=== PATIENT | male | born 1955 | race Caucasian/White ===

== ENCOUNTER 2019-10-18 09:51 | Outpatient (CLI) | payer MEDICARE, SELFPAY ==
--- NOTE | ~2019-10-18 | XR_ITS ---
EXAMINATION: XR thoracic spine 3V DATE: 10/18/2019 10:29 INDICATION: Back pain TECHNIQUE: AP, lateral and lateral swimmer's views of the thoracic spine were obtained. COMPARISON: None. FINDINGS: There is no fracture, dislocation, or subluxation. The vertebral body heights and alignment are normal. There is mild loss of intervertebral disc space height at multiple levels of the thoraci c spine. There are changes of anterior fusion procedure in the lower cervical spine. Small degenerati ve osteophytes project from the anterior endplates of multiple vertebral bodies. IMPRESSION: 1. Mild thoracic spondylosis without acute findings. Reviewed, dictated and finalized at location A.
--- NOTE | ~2019-10-18 | XR_ITS ---
EXAMINATION: XR lumbar spine 2-3V DATE: 10/18/2019 10:29 INDICATION: Right-sided sciatica TECHNIQUE: Anteroposterior and lateral views of the lumbar spine, and cone-down lateral view of the l umbosacral junction were obtained. COMPARISON: None. FINDINGS: There are 5 mm of anterolisthesis of L5 on S1. The vertebral body heights are normal. There is no fracture. There is mild loss of intervertebral disc space height at L3-4. Small degenerative o steophytes project from the anterior endplates of multiple vertebral bodies. Moderate facet osteoarth ritis is noted at L5-S1. There is moderate right and mild left hip osteoarthritis. Phleboliths are no jami in the pelvis. Metallic densities in the deep pelvis may reflect surgical clips. IMPRESSION: 1. Mild to moderate lumbar spondylosis without acute findings. Reviewed, dictated and finalized at location A.
--- NOTE | ~2019-10-18 | XR_ITS ---
XR hip RT min 2V 10/18/2019 10:29 Indication: Right hip pain Procedure: 2 views right hip Comparison: No prior studies for comparison. Findings: There is severe osteoarthritis of the right hip. No fracture, subluxation or dislocation. N o focal soft tissue abnormality. No radiopaque foreign bodies. Impression: 1: Severe osteoarthritis of the right hip. Reviewed, dictated and finalized at location A. Impression: 1: Severe osteoarthritis of the right hip.
== END 2019-10-18 09:52 | disposition home or self-care (01) ==
LOC: ANHIMG 10:06
PROVIDERS: PCP Physician Assistant; Visit Provider Physician Assistant
DX: M25.551 Pain in right hip (principal); M54.31 Sciatica, right side; M47.816 Spondylosis without myelopathy or radiculopathy, lumbar region; M47.814 Spondylosis without myelopathy or radiculopathy, thoracic region; M16.11 Unilateral primary osteoarthritis, right hip
CPT/HCPCS: 72072; 72100; 73502

== ENCOUNTER 2020-02-22 09:22 | Outpatient (CLI) | payer MEDICARE, SELFPAY ==
[2020-02-22 09:54] LABS: Basophils Percent Auto 0.5 % (0.2-1.2); Eosinophils Absolute Auto 0.2 K/mm3 (0-0.3); Eosinophils Percent Auto 3.5 % (0-4.4); Hematocrit 40.4 % (42.0-52.0); Hemoglobin 13.6 g/dL (14.0-18.0); Immature Granulocyte Absolute 0.04 K/mm3 (0.00-0.031); Immature Granulocyte Percent A 0.7 % (0-0.5); Lymphocytes Absolute Auto 2.01 K/mm3 (0.9-3.2); Lymphocytes Percent Auto 35.4 % (18.3-44.2); Mean Corpuscular HGB Conc 33.7 g/dl (32-36); Mean Corpuscular Hemoglobin 30.8 pg (26-34); Mean Corpuscular Volume 91.4 fl (80-100); Monocytes Absolute Auto 0.8 K/mm3 (0.1-0.6); Monocytes Percent Auto 14.6 % (2.6-8.5); Neutrophils Absolute Auto 2.6 K/mm3 (1.3-6.7); Neutrophils Percent Auto 45.3 % (45.5-73.1); Platelet Count Result 241 k/mm3 (150-375); Red Blood Count 4.42 M/mm3 (4.6-6.20); Red Cell Distribution Width 13.2 % (11.5-14.5); White Blood Count 5.7 K/mm3 (4.5-10.0)
[2020-02-22 10:03] LABS: Anion Gap 5 mmol/L (8-16); Aspartate Amino Transferase 28 U/L (17-59); Blood Urea Nitrogen 29 mg/dL (9-20); Calcium 9.4 mg/dL (8.4-10.2); Carbon Dioxide 29 mmol/L (22-30); Chloride 100 mmol/L (98-107); Estimated Glomerular Filt Rate > 60; Glucose 88 mg/dL (75-110); Potassium 4.8 mmol/L (3.4-5.0); Sodium 134 mmol/L (137-145)
== END 2020-02-22 09:23 | disposition home or self-care (01) ==
LOC: ANHLAB 09:26
PROVIDERS: PCP Physician Assistant; Visit Provider Orthopaedic Surgery
DX: Z51.81 Encounter for therapeutic drug level monitoring (principal); Z79.1 Long term (current) use of non-steroidal anti-inflammatories (NSAID)
CPT/HCPCS: 36415; 80048; 84450; 85025

== ENCOUNTER 2020-10-18 10:47 | Emergency (ER) | payer MEDICARE, SELFPAY ==
[2020-10-18] VITALS (23 sets, daily range): BP systolic 76–115; BP diastolic 37–79; PULSE 76–102; RESP 9–20; TEMP 37.7; O2SAT 88–98
--- NOTE | ~2020-10-18 | XR_ITS ---
EXAMINATION: XR chest 2V DATE: 10/18/2020 11:31 INDICATION: Fever TECHNIQUE: PA and lateral views of the chest are obtained. COMPARISON: 01/25/2019 FINDINGS: The lungs are free of acute opacities. There is no pleural effusion or pneumothorax. The ca rdiomediastinal silhouette is normal. There is mild thoracic spondylosis. There are partially imaged changes of anterior fusion in the lower cervical spine. IMPRESSION: 1. No acute cardiopulmonary abnormality. Reviewed, dictated and finalized at location B.
[2020-10-18 11:36] LABS: Basophils Percent Auto 0.2 % (0.2-1.2); Eosinophils Percent Auto 0.2 % (0-4.4); Hematocrit 41.4 % (42.0-52.0); Hemoglobin 13.7 g/dL (14.0-18.0); Immature Granulocyte Absolute 0.01 K/mm3 (0.00-0.031); Immature Granulocyte Percent A 0.2 % (0-0.5); Lymphocytes Absolute Auto 0.99 K/mm3 (0.9-3.2); Lymphocytes Percent Auto 21.9 % (18.3-44.2); Mean Corpuscular HGB Conc 33.1 g/dl (32-36); Mean Corpuscular Hemoglobin 30.2 pg (26-34); Mean Corpuscular Volume 91.4 fl (80-100); Mean Platelet Volume 8.8 fl (7.4-10.4); Monocytes Absolute Auto 0.5 K/mm3 (0.1-0.6); Monocytes Percent Auto 10.8 % (2.6-8.5); Neutrophils Percent Auto 66.7 % (45.5-73.1); Platelet Count Result 198 k/mm3 (150-375); Red Blood Count 4.53 M/mm3 (4.6-6.20); Red Cell Distribution Width 13.2 % (11.5-14.5); White Blood Count 4.5 K/mm3 (4.5-10.0)
[2020-10-18 11:39] LABS: Add Urine Microscopic? YES; Appearance Urine Clear (Clear); Bilirubin Urine Negative (Negative); Blood Urine 2+ (Negative); Color Urine Yellow (Yellow); Glucose Urine UA Negative (Negative); Ketones Urine Negative (Negative); Leukocyte Esterase Ur Negative LEU/UL (Negative); Mucus Urine Rare /lpf; Nitrate Urine Negative (Negative); Protein Urine 1+ mg/dL (Negative); RBC Urine 0-2 /hpf (0-2); Specific Grav Ur 1.019 (1.001-1.035); Squamous Epithelial Cell Urine Rare /hpf (Few); Urobilinogen Urine Negative mg/dL (<2.0); WBC Urine 0-3 /hpf
[2020-10-18 11:46] LABS: Lactic Acid Reflex 1.1 mmol/L (0.7-2.1)
[2020-10-18 11:50] LABS: Alanine Aminotransferase 26 U/L (4-50); Albumin Level 4.3 g/dL (3.5-5.1); Alkaline Phosphatase 68 U/L (38-126); Anion Gap 10 mmol/L (8-16); Aspartate Amino Transferase 34 U/L (17-59); Bilirubin,Total 0.5 mg/dL (0.2-1.3); Blood Urea Nitrogen 18 mg/dL (9-20); CRP 1.5 mg/dL (<1.0); Calcium 8.9 mg/dL (8.4-10.2); Carbon Dioxide 19 mmol/L (22-30); Chloride 99 mmol/L (98-107); Estimated CRCL calculation 54 ml/min; Estimated Glomerular Filt Rate 47; Glucose 97 mg/dL (75-110); Potassium 4.8 mmol/L (3.4-5.0); Prothrombin Time 12.7 Seconds (11.1-14.7); Sodium 128 mmol/L (137-145)
[2020-10-18 11:51] LABS: Partial Thromboplastin Time 25.8 SECONDS (22.3-36.8)
--- NOTE | 2020-10-18 12:47 | ED.FEVER ---
HPI - Fever General Chief Complaint: Fever Stated Complaint: R LEG WOUND Time Seen by Provider: 10/18/20 12:15 Source: patient Mode of arrival: ambulatory Limitations: no limitations History of Present Illness HPI Narrative: Patient is a 65-year-old male complaining of fever x1 day at home. Patient states that he was recently treated with antibiotics last week from a boil on his right thigh, now healed, was rechecked by his primary care physician and was told that the boil has resolved. Last night patient developed fever. Patient denies any headache, chest pain, shortness of breath, cough, nasal or chest congestion, abdominal pain, nausea, vomiting, diarrhea or urinary symptoms. Related Data Home Medications Medication Instructions Recorded Confirmed cyanocobalamin (vitamin B-12) 1,000 mcg PO DAILY 03/08/19 10/16/20 1,000 mcg tablet finasteride 5 mg tablet 5 mg PO DAILY 03/08/19 10/16/20 tadalafil 5 mg tablet 5 mg PO DAILY 03/08/19 10/16/20 cholecalciferol (vitamin D3) 25 25 mcg PO DAILY 04/30/20 10/16/20 mcg (1,000 unit) capsule Allergies Allergy/AdvReac Type Severity Reaction Status Date / Time No Known Allergies Allergy Unknown Verified 10/18/20 12:22 Review of Systems Review of Systems: All systems reviewed & are unremarkable except as noted in HPI and below Constitutional: Constitutional: Denies body ache(s), Denies excessive sweating, Denies fatigue, Denies headache(s), Denies lethargy, Denies malaise, Denies weakness and Denies weight loss Eyes: Eyes: Denies blurry vision, Denies change in vision and Denies loss of vision ENT: Denies dizziness, Denies ear discharge, Denies headache(s), Denies lip swelling, Denies epistaxis, Denies nasal congestion, Denies neck pain, Denies throat swelling and Denies tongue swelling Cardiovascular: Cardiovascular: Denies chest pain, Denies chest pain at rest, Denies chest pain with activity, Denies diaphoresis, Denies rapid heart rate, Denies edema, Denies irregular heart rhythm, Denies lightheadedness, Denies palpitations, Denies dyspnea and Denies dyspnea on exertion Respiratory: Respiratory: Denies chest congestion, Denies cough, Denies hemoptysis, Denies dyspnea and Denies dyspnea on exertion Gastrointestinal: Gastrointestinal: Denies abdominal pain, Denies melena, Denies hematochezia, Denies diarrhea, Denies nausea, Denies vomiting and Denies hematemesis Musculoskeletal: Musculoskeletal: Denies abnormal gait, Denies deformity, Denies joint swelling, Denies limited range of motion, Denies neck pain and Denies numbness Neurologic: Denies Abnormal speech present, Denies abnormal gait, Denies confusion, Denies dizziness, Denies headache(s), Denies focal weakness, Denies loss of vision, Denies numbness, Denies Other visual disturbances, Denies Sensory deficit (Neuro) and Denies weakness Psychiatric: Psychiatric: Denies confusion, Denies depression, Denies auditory hallucinations, Denies homicidal ideation and Denies suicidal ideation Endocrine: Endocrine: Denies cold intolerance, Denies excessive sweating, Denies fatigue, Denies heat intolerance and Denies palpitations Hematologic/Lymphatic: Hematologic/Lymphatic: Denies easy bleeding and Denies easy bruising Allergic/Immunologic: Allergic/Immunologic: Denies lip swelling, Denies throat swelling and Denies tongue swelling PMFSH Past Medical History Medical History Acute bronchitis, viral Arthritis Back pain with right-sided sciatica BMI 30.0-30.9,adult BPH associated with nocturia Erectile dysfunction Hypertension Right hip pain Vitamin B12 deficiency anemia Surgical History Surgical History H/O prostate biopsy 2016 History of hernia surgery 1999,2015 History of neck surgery Disk surgery 1989 Urolith 2016 Family History Family History Mother P
[2020-10-18] MEDS: ACETAMINOPHEN 325 MG TABLET 650 MG PO (13:55)
[2020-10-18] MEDS: LACTATED RINGERS 1,000 ML 999 ML IV CONT (14:39)
--- NOTE | 2020-10-18 15:39 | PCCCNOTE ---
Care Coordination was asked to talk to patient about Observation care. Discussed the difference of observation and Inpatient admission. Pt concerned that [facility] will not pay much and he does not want to be stuck with big bill. Pt states he has not yet met his yearly deductible, informed him that he would be responsible for that amount and then the percentage he normally pays for outpatient tests. Informed him that if his bill was more that he could afford that he can contact the business office and work a payment plan or apply for financial assistance. present during this conversation. Encouraged pt to follow Physician recommendations.
== END 2020-10-18 15:45 | disposition left against medical advice (07) ==
PROVIDERS: Emergency Medicine; Emergency Provider Emergency Medicine; PCP Family Medicine
DX: R50.9 Fever, unspecified (principal); N17.9 Acute kidney failure, unspecified; M19.90 Unspecified osteoarthritis, unspecified site; N40.1 Benign prostatic hyperplasia with lower urinary tract symptoms; R35.1 Nocturia; I10 Essential (primary) hypertension; D51.9 Vitamin B12 deficiency anemia, unspecified; Z87.891 Personal history of nicotine dependence
CPT/HCPCS: 36415; 71046; 80053; 81001; 83605; 85025; 85610; 85730; 86140; 87040; 96361; 96365; 99284; A9270; J0696; J7120

== ENCOUNTER 2020-10-19 13:53 | Inpatient (IN) | payer MEDICARE, SELFPAY ==
[2020-10-19] VITALS (22 sets, daily range): BP systolic 94–124; BP diastolic 46–76; PULSE 80–112; RESP 18–20; TEMP 36.3–39.5; O2SAT 96–100; BMI 31.0
--- NOTE | ~2020-10-19 | XR_ITS ---
EXAMINATION: XR chest 2V EXAM DATE: 10/19/2020 15:32 INDICATION: Cough, fever, chills. TECHNIQUE: Frontal and lateral projections of the chest obtained and reviewed. Comparison is made to prior examination from 02/18/2021. FINDINGS: The lungs are clear. There are no pleural effusions. The cardiomediastinal silhouette is within normal limits. There is no pneumothorax suspected. Cervical fusion hardware. IMPRESSION: No acute cardiopulmonary findings. Reviewed, dictated and finalized at location A.
[2020-10-19 14:22] LABS: Hematocrit 40.2 % (42.0-52.0); Hemoglobin 13.5 g/dL (14.0-18.0); Mean Corpuscular HGB Conc 33.6 g/dl (32-36); Mean Corpuscular Hemoglobin 30.8 pg (26-34); Mean Corpuscular Volume 91.6 fl (80-100); Mean Platelet Volume 8.9 fl (7.4-10.4); Platelet Count Result 168 k/mm3 (150-375); Red Blood Count 4.39 M/mm3 (4.6-6.20); White Blood Count 6.1 K/mm3 (4.5-10.0)
[2020-10-19 14:32] LABS: Alanine Aminotransferase 28 U/L (4-50); Albumin Level 4.2 g/dL (3.5-5.1); Alkaline Phosphatase 67 U/L (38-126); Anion Gap 11 mmol/L (8-16); Aspartate Amino Transferase 41 U/L (17-59); Bilirubin,Total 0.5 mg/dL (0.2-1.3); Blood Urea Nitrogen 20 mg/dL (9-20); Calcium 8.7 mg/dL (8.4-10.2); Carbon Dioxide 20 mmol/L (22-30); Chloride 95 mmol/L (98-107); Estimated CRCL calculation 50 ml/min; Estimated Glomerular Filt Rate 43; Glucose 120 mg/dL (75-110); Lipase 140 U/L (23-300); Potassium 4.8 mmol/L (3.4-5.0); Sodium 126 mmol/L (137-145)
[2020-10-19 14:51] LABS: Band Neutrophils Percent 7 % (0-6); Eosinophils Absolute Manual 0.12 K/mm3 (0.02-0.5); Eosinophils Percent Manual 2 % (0-4); Lymphocytes Absolute Manual 0.61 K/mm3 (1.1-4.5); Monocytes Percent Manual 5 % (3-9); Neutrophils Absolute Manual 5.06 K/mm3 (1.3-6.7); Neutrophils Percent Manual 76 % (46-73); Platelet Estimate Adequate (Adequate); Total Cells Counted 100
--- NOTE | 2020-10-19 15:10 | ED.FEVER ---
HPI - Fever General Chief Complaint: Fever Stated Complaint: nausea.vomiting Time Seen by Provider: 10/19/20 14:54 Source: patient Mode of arrival: ambulatory Limitations: no limitations History of Present Illness HPI Narrative: Patient is a 65-year-old male complaining of fever accompanied by nausea and vomiting at home. Patient was seen here 3 days ago for fever, advised the patient to be admitted but he refused at that time. Patient denies any headache, dizziness, neck pain or stiffness, chest pain, shortness of breath, abdominal pain or urinary symptoms. Related Data Home Medications Medication Instructions Recorded Confirmed finasteride 5 mg tablet 5 mg PO DAILY 03/08/19 10/16/20 tadalafil 5 mg tablet 5 mg PO DAILY 03/08/19 10/16/20 cholecalciferol (vitamin D3) 25 25 mcg PO DAILY 04/30/20 10/16/20 mcg (1,000 unit) capsule Allergies Allergy/AdvReac Type Severity Reaction Status Date / Time No Known Allergies Allergy Unknown Verified 10/18/20 12:22 Review of Systems Review of Systems: All systems reviewed & are unremarkable except as noted in HPI and below Constitutional: Constitutional: Denies body ache(s), Denies excessive sweating, Denies fatigue, Denies headache(s), Denies lethargy, Denies malaise, Denies weakness and Denies weight loss Eyes: Eyes: Denies blurry vision, Denies change in vision and Denies loss of vision ENT: Denies dizziness, Denies ear discharge, Denies headache(s), Denies lip swelling, Denies epistaxis, Denies nasal congestion, Denies neck pain, Denies throat swelling and Denies tongue swelling Cardiovascular: Cardiovascular: Denies chest pain, Denies chest pain at rest, Denies chest pain with activity, Denies diaphoresis, Denies rapid heart rate, Denies edema, Denies irregular heart rhythm, Denies lightheadedness, Denies palpitations, Denies dyspnea and Denies dyspnea on exertion Respiratory: Respiratory: Denies chest congestion, Denies cough, Denies hemoptysis, Denies dyspnea and Denies dyspnea on exertion Gastrointestinal: Gastrointestinal: Denies abdominal pain, Denies melena, Denies hematochezia, Denies diarrhea and Denies hematemesis Musculoskeletal: Musculoskeletal: Denies abnormal gait, Denies deformity, Denies joint swelling, Denies limited range of motion, Denies neck pain and Denies numbness Neurologic: Denies Abnormal speech present, Denies abnormal gait, Denies confusion, Denies dizziness, Denies headache(s), Denies focal weakness, Denies loss of vision, Denies numbness, Denies Other visual disturbances, Denies Sensory deficit (Neuro) and Denies weakness Psychiatric: Psychiatric: Denies confusion, Denies depression, Denies auditory hallucinations, Denies homicidal ideation and Denies suicidal ideation Endocrine: Endocrine: Denies cold intolerance, Denies excessive sweating, Denies fatigue, Denies heat intolerance and Denies palpitations Hematologic/Lymphatic: Hematologic/Lymphatic: Denies easy bleeding and Denies easy bruising Allergic/Immunologic: Allergic/Immunologic: Denies lip swelling, Denies throat swelling and Denies tongue swelling PMFSH Past Medical History Medical History Acute bronchitis, viral Arthritis Back pain with right-sided sciatica BMI 30.0-30.9,adult BPH associated with nocturia Erectile dysfunction Hypertension Right hip pain Vitamin B12 deficiency anemia Surgical History Surgical History H/O prostate biopsy 2016 History of hernia surgery 1999,2015 History of neck surgery Disk surgery 1989 Urolith 2016 Family History Family History Mother Patient's mother is , Onset Age: 84 Family history of malignant neoplasm of urinary bladder Hypertension Father Family history of malignant neoplasm, Onset Age: 74 Leukemia Other Carcinoma of colon Other Family
[2020-10-19 15:34] LABS: Add Urine Microscopic? YES; Appearance Urine Clear (Clear); Bacteria Urine Trace /hpf; Bilirubin Urine Negative (Negative); Blood Urine 2+ (Negative); Color Urine Yellow (Yellow); Glucose Urine UA Negative (Negative); Ketones Urine Trace mg/dL (Negative); Leukocyte Esterase Ur Negative LEU/UL (Negative); Mucus Urine Rare /lpf; Nitrate Urine Negative (Negative); Protein Urine 1+ mg/dL (Negative); RBC Urine 0-2 /hpf (0-2); Specific Grav Ur 1.018 (1.001-1.035); Urobilinogen Urine Negative mg/dL (<2.0); WBC Urine 0-3 /hpf
[2020-10-19] MEDS: LACTATED RINGERS 1,000 ML 999 ML IV CONT (15:35)
[2020-10-19] MEDS: ONDANSETRON INJ 4 MG/2 ML VIAL IV PUSH (15:57)
[2020-10-19] MEDS: SODIUM CHLORIDE 0.9% IV 1,000 ML 999 ML IV CONT (18:21)
--- NOTE | 2020-10-19 18:36 | PC.NURSE ---
Orthostatics done, dizziness with sitting up. IVF initiated and pt prepared for CT via stretcher. Dizziness gone after returning to bed.
--- NOTE | 2020-10-19 19:09 | PC.NURSE ---
Per Marcia no SBAR received, and THOMAS Lowry, not available for phone report. SBAR copy tubed to floor. Report to THOMAS Mello, to continue care.
[2020-10-19] MEDS: SODIUM CHLORIDE 0.9% IV 1,000 ML 125 ML IV CONT (20:49)
--- NOTE | 2020-10-19 21:55 | ADMGEN ---
This patient, Lowell Padron, was admitted to Medical Room 344-01. Patient/family oriented to hospital policies and general routines including ID bracelet, bed and alarms, visiting hours, pain management, procedures, bathroom and other care routines, personal items, smoking policy, room service/diet, and visiting hours. Information on how to activate the Rapid Response Team has been discussed. Patient/Family are encouraged to report perceived risks to care and to ask questions if they do not understand what they are told or what they should do.
--- NOTE | 2020-10-19 22:44 | PM.IMHP ---
H&P: HPI History of Present Illness Date/Time: 10/19/20 22:44Thielzbieta is a 65-year-old male patient who was in the emergency room with a fever yesterday. However the patient did not stay any signed himself out. The patient stated that on the 02 of October he went to [facility] and he noticed a boil on his right inner thigh. The patient stated he was able to get into his doctor on the . He was given Bactrim and took a 10 day dose. The patient stated that the boil on the right inner thigh had gone away and there was no redness or tenderness after that. Patient finished his last pill yesterday. The patient stated that he did not start a fever until after he started the Bactrim. Today the patient developed a red rash in his face got red. He does not have any blisters or any sores in his mouth at this point. However today there is a large area around the right inner thigh that is red now. He stated that He hada T-max fever of 103 over the last couple days. today the patient's face got red had not been out in the sun and he developed a rash and felt that he needed to come back into the emergency room. He does not have an elevated white count. Any typically has high blood pressure but today it was low. He vomited as soon as he got into the emergency room today but he stated he go down a large orange drink right before going to the ER. The patient's sodium is down to 126 and his creatinine is now 1.6. He was started on IV fluids initially he was started on Rocephin. His urine is negative and his chest x-ray offers up no acute cardiopulmonary findings. The patient was started on lactated Ringer's, Rocephin, Tylenol, Zofran and then normal saline. The patient is being admitted to observation status on the date of service of 10/19/2020. Chief Complaint: Fever Review of Systems Review of Systems: All systems reviewed & are unremarkable except as noted in HPI and below Constitutional: Constitutional: Reports as per HPI and Reports no additional constitutional complaints Eyes: Eyes: Reports as per HPI and Reports no additional eye complaints ENT: Reports system reviewed and no additional complaints, except as documented and Reports Normal hearing present Cardiovascular: Cardiovascular: Reports no additional cardiovascular complaints Respiratory: Respiratory: Reports no additional respiratory complaints and Reports no additional respiratory complaints Gastrointestinal: Gastrointestinal: Reports as per HPI and Reports no additional gastrointestinal complaints Musculoskeletal: Musculoskeletal: Reports no additional musculoskeletal complaints Integumentary/Breasts: Skin/Breast: Reports system reviewed and no additional complaints, except as docu and Reports as per HPI Neurologic: Reports system reviewed and no additional complaints, except as documented, Reports as per HPI and Reports Normal hearing present Psychiatric: Psychiatric: Reports no additional psychiatric complaints and Reports as per HPI Endocrine: Endocrine: Reports no additional endocrine complaints Hematologic/Lymphatic: Hematologic/Lymphatic: Reports no additional hematologic/lymphatic complaints Allergic/Immunologic: Allergic/Immunologic: Reports no additional allergic/immunologic complaints [facility] Past Medical History Medical History (Updated 10/19/20 @ 22:48 by Emily Rajput NP) Acute bronchitis, viral Arthritis Back pain with right-sided sciatica BMI 30.0-30.9,adult BPH associated with nocturia Erectile dysfunction Hypertension Right hip pain Vitamin B12 deficiency anemia Surgical History Surgical History H/O prostate biopsy 2016 History of hernia surgery 1999,2015 History of neck surgery Disk surgery 1989 Urolith 2016 Family History Family History Mother Patient's mother is , Onset Age: 84 Family history of malignant neopl
[2020-10-20] VITALS (8 sets, daily range): BP systolic 89–129; BP diastolic 55–67; PULSE 71–84; RESP 18; TEMP 36.9–38.4; O2SAT 96–99
[2020-10-20] MEDS: SODIUM CHLORIDE 0.9% IV 1,000 ML 125 ML IV CONT ×3 (05:00→22:45)
[2020-10-20 05:51] LABS: Basophils Percent Auto 0.3 % (0.2-1.2); Eosinophils Percent Auto 0.3 % (0-4.4); Hematocrit 33.5 % (42.0-52.0); Hemoglobin 11.3 g/dL (14.0-18.0); Immature Granulocyte Absolute 0.02 K/mm3 (0.00-0.031); Immature Granulocyte Percent A 0.5 % (0-0.5); Lymphocytes Absolute Auto 0.75 K/mm3 (0.9-3.2); Lymphocytes Percent Auto 19.5 % (18.3-44.2); Mean Corpuscular HGB Conc 33.7 g/dl (32-36); Mean Corpuscular Hemoglobin 30.9 pg (26-34); Mean Corpuscular Volume 91.5 fl (80-100); Mean Platelet Volume 9.3 fl (7.4-10.4); Monocytes Absolute Auto 0.3 K/mm3 (0.1-0.6); Monocytes Percent Auto 8.6 % (2.6-8.5); Neutrophils Absolute Auto 2.7 K/mm3 (1.3-6.7); Neutrophils Percent Auto 70.8 % (45.5-73.1); Platelet Count Result 134 k/mm3 (150-375); Red Blood Count 3.66 M/mm3 (4.6-6.20); White Blood Count 3.8 K/mm3 (4.5-10.0)
[2020-10-20 06:00] LABS: Lactic Acid Reflex 0.9 mmol/L (0.7-2.1)
[2020-10-20 06:03] LABS: Alanine Aminotransferase 25 U/L (4-50); Albumin Level 3.2 g/dL (3.5-5.1); Alkaline Phosphatase 46 U/L (38-126); Anion Gap 8 mmol/L (8-16); Aspartate Amino Transferase 38 U/L (17-59); Bilirubin,Total 0.3 mg/dL (0.2-1.3); Blood Urea Nitrogen 15 mg/dL (9-20); Carbon Dioxide 21 mmol/L (22-30); Chloride 98 mmol/L (98-107); Estimated CRCL calculation 70 ml/min; Estimated Glomerular Filt Rate 55; Glucose 95 mg/dL (75-110); Magnesium 1.6 mg/dL (1.6-2.3); Potassium 4.2 mmol/L (3.4-5.0); Sodium 127 mmol/L (137-145)
[2020-10-20] MEDS: FINASTERIDE 5 MG TABLET PO (08:45)
[2020-10-20] MEDS: CHOLECALCIFEROL 1,000 UNITS TABLET 1000 UNITS PO (08:45)
[2020-10-20] MEDS: ENOXAPARIN 40 MG/0.4 ML SYRINGE SUB-Q (08:46)
--- NOTE | 2020-10-20 13:44 | PM.IMPN ---
Progress Note: A&P Assessment and Plan (1) Fever: Qualifiers: Fever type: unspecified Qualified Code(s): R50.9 - Fever, unspecified Code(s): R50.9 - Fever, unspecified Status: Acute Assessment and Plan: SUSPECT FEVER MEDICAMENTOSA WILL DISCONTINUE ALL ANTIBIOTICS SUPPORTIVE CARE CONTINUE TO MONITOR the patient was treated for a boil to his right inner thigh and developed a fever after he started on the Bactrim. The patient now has a rash and a red face. Which could be side effects of the Bactrim. The patient does not have any sloughing skin like Otto Riki syndrome. Although this medication can cause Otto Riki syndrome the patient needs to be monitored closely. He was started on IV fluids and given Tylenol and Benadryl his symptoms could be related to the Bactrim. He was started on Rocephin in the emergency room which would work for skin infection. The patient still has a red area to his right inner thigh as per antibiotic protocol I did start him on Ancef. He had blood cultures drawn on the which are still pending. Patient's temperature on 10/18/2020 was 37.7 and on the 3rd was 38? and then went up to 39.5 degree Con the 3rd today it was 37.8 ? C. the patient does not have any leukocytosis. This also could possibly be viral. Urine and chest are negative. (2) Acute kidney injury: Code(s): N17.9 - Acute kidney failure, unspecified Status: Acute Assessment and Plan: Continue with IV fluids for now. Again this could be the side effects of the Bactrim. He threw up only 1 time that was coming into the emergency room. Recheck BMP in the a.m.. (3) Hypertension: Code(s): I10 - Essential (primary) hypertension Status: Chronic Assessment and Plan: Patient's blood pressure is on the soft side at this time. The patient only takes medication for BPH. (4) BPH associated with nocturia: Code(s): N40.1 - Benign prostatic hyperplasia with lower urinary tract symptoms; R35.1 - Nocturia Status: Acute Assessment and Plan: Continue with his home medication for BPH but monitor his blood pressure closely. Subjective Date/time seen: 10/20/20 13:44 I FEEL OKAY Review of Systems Review of Systems: All systems reviewed & are unremarkable except as noted in HPI and below Constitutional: Constitutional: Reports as per HPI and Reports no additional constitutional complaints Eyes: Eyes: Reports as per HPI and Reports no additional eye complaints ENT: Reports system reviewed and no additional complaints, except as documented and Reports Normal hearing present Cardiovascular: Cardiovascular: Reports no additional cardiovascular complaints Respiratory: Respiratory: Reports no additional respiratory complaints and Reports no additional respiratory complaints Gastrointestinal: Gastrointestinal: Reports as per HPI and Reports no additional gastrointestinal complaints Musculoskeletal: Musculoskeletal: Reports no additional musculoskeletal complaints Integumentary/Breasts: Skin/Breast: Reports system reviewed and no additional complaints, except as docu and Reports as per HPI Neurologic: Reports system reviewed and no additional complaints, except as documented, Reports as per HPI and Reports Normal hearing present Psychiatric: Psychiatric: Reports no additional psychiatric complaints and Reports as per HPI Endocrine: Endocrine: Reports no additional endocrine complaints Hematologic/Lymphatic: Hematologic/Lymphatic: Reports no additional hematologic/lymphatic complaints Allergic/Immunologic: Allergic/Immunologic: Reports no additional allergic/immunologic complaints Exam Const: General: cooperative, healthy appearing, comfortable, no acute distress, well developed, alert, awake and Physically active Nutritional Appearance: average body habitus and well nourished Orientation/consciousness: oriented to person, oriented to p
[2020-10-21 05:18] VITALS: BP 104/48; PULSE 72; RESP 17; TEMP 37.1; O2SAT 98
[2020-10-21] MEDS: SODIUM CHLORIDE 0.9% IV 1,000 ML 125 ML IV CONT (06:52)
[2020-10-21] MEDS: FINASTERIDE 5 MG TABLET PO (08:16)
[2020-10-21] MEDS: CHOLECALCIFEROL 1,000 UNITS TABLET 1000 UNITS PO (08:16)
[2020-10-21] MEDS: ENOXAPARIN 40 MG/0.4 ML SYRINGE SUB-Q (08:16)
[2020-10-21 08:21] VITALS: O2SAT 98
--- NOTE | 2020-10-21 08:43 | PM.DS ---
DS: Admitting Diagnosis Admitting Diagnosis Admitting Diagnosis: 1) Fever: Qualifiers: Fever type: unspecified Qualified Code(s): R50.9 - Fever, unspecified Code(s): R50.9 - Fever, unspecified Status: Acute Assessment and Plan: the patient was treated for a boil to his right inner thigh and developed a fever after he started on the Bactrim. The patient now has a rash and a red face. Which could be side effects of the Bactrim. The patient does not have any sloughing skin like Otto Riki syndrome. Although this medication can cause Otto Riki syndrome the patient needs to be monitored closely. He was started on IV fluids and given Tylenol and Benadryl his symptoms could be related to the Bactrim. He was started on Rocephin in the emergency room which would work for skin infection. The patient still has a red area to his right inner thigh as per antibiotic protocol I did start him on Ancef. He had blood cultures drawn on the which are still pending. Patient's temperature on 10/18/2020 was 37.7 and on the was 38? and then went up to 39.5 degree Con the 3rd today it was 37.8 ? C. the patient does not have any leukocytosis. This also could possibly be viral. Urine and chest are negative. (2) Acute kidney injury: Code(s): N17.9 - Acute kidney failure, unspecified Status: Acute Assessment and Plan: Continue with IV fluids for now. Again this could be the side effects of the Bactrim. He threw up only 1 time that was coming into the emergency room. Recheck BMP in the a.m.. (3) Hypertension: Code(s): I10 - Essential (primary) hypertension Status: Chronic Assessment and Plan: Patient's blood pressure is on the soft side at this time. The patient only takes medication for BPH. (4) BPH associated with nocturia: Code(s): N40.1 - Benign prostatic hyperplasia with lower urinary tract symptoms; R35.1 - Nocturia Status: Acute Assessment and Plan: Continue with his home medication for BPH but monitor his blood pressure closely. DS: Discharge Diagnosis Discharge Diagnosis (1) Fever: Qualifiers: Fever type: unspecified Qualified Code(s): R50.9 - Fever, unspecified Code(s): R50.9 - Fever, unspecified Status: Acute Assessment and Plan: SUSPECT FEVER MEDICAMENTOSA/DRUG FEVER WILL DISCONTINUE ALL ANTIBIOTICS SUPPORTIVE CARE CONTINUE TO MONITOR the patient was treated for a boil to his right inner thigh and developed a fever after he started on the Bactrim. The patient now has a rash and a red face. Which could be side effects of the Bactrim. The patient does not have any sloughing skin like Otto Riki syndrome. Although this medication can cause Otto Riki syndrome the patient needs to be monitored closely. He was started on IV fluids and given Tylenol and Benadryl his symptoms could be related to the Bactrim. He was started on Rocephin in the emergency room which would work for skin infection. The patient still has a red area to his right inner thigh as per antibiotic protocol I did start him on Ancef. He had blood cultures drawn on the which are still pending. Patient's temperature on 10/18/2020 was 37.7 and on the was 38? and then went up to 39.5 degree Con the 3rd today it was 37.8 ? C. the patient does not have any leukocytosis. This also could possibly be viral. Urine and chest are negative. (2) Acute kidney injury: Code(s): N17.9 - Acute kidney failure, unspecified Status: Acute Assessment and Plan: Continue with IV fluids for now. Again this could be the side effects of the Bactrim. He threw up only 1 time that was coming into the emergency room. Recheck BMP in the a.m.. (3) Hypertension: Code(s): I10 - Essential (primary) hypertension Status: Chronic Assessment and Plan: Patient's blood pressure is on the soft side at th
== END 2020-10-21 09:55 | disposition home or self-care (01) | DRG 864 ==
LOC: ANHED 18:09 → ANH3MED 18:45
PROVIDERS: Emergency Medicine; Nurse Practitioner; Admitting Provider Internal Medicine; Emergency Provider Emergency Medicine; PCP Family Medicine; Visit Provider Internal Medicine
DX: R50.2 Drug induced fever (principal); N17.9 Acute kidney failure, unspecified; L27.0 Generalized skin eruption due to drugs and medicaments taken internally; T36.8X5A Adverse effect of other systemic antibiotics, initial encounter; N40.1 Benign prostatic hyperplasia with lower urinary tract symptoms; R35.1 Nocturia; I10 Essential (primary) hypertension; M19.90 Unspecified osteoarthritis, unspecified site; D51.9 Vitamin B12 deficiency anemia, unspecified; Z87.891 Personal history of nicotine dependence
CPT/HCPCS: 36415; 71046; 80053; 81001; 83605; 83690; 83735; 84443; 85025; 87040; 87804; 96361; 96365; 96366; 96367; 96372; 96375; 96376; 99285; A9270; G0378; J0131; J0690; J0696; J1650; J2405; J7030; J7120

== ENCOUNTER 2021-01-28 14:08 | Outpatient (CLI) | payer MEDICARE, SELFPAY ==
[2021-01-28 16:06] LABS: Basophils Percent Auto 0.3 % (0.2-1.2); Eosinophils Absolute Auto 0.2 K/mm3 (0-0.3); Eosinophils Percent Auto 3.7 % (0-4.4); Hematocrit 42.1 % (42.0-52.0); Hemoglobin 13.8 g/dL (14.0-18.0); Immature Granulocyte Absolute 0.05 K/mm3 (0.00-0.031); Immature Granulocyte Percent A 0.8 % (0-0.5); Lymphocytes Absolute Auto 1.83 K/mm3 (0.9-3.2); Lymphocytes Percent Auto 30.5 % (18.3-44.2); Mean Corpuscular HGB Conc 32.8 g/dl (32-36); Mean Corpuscular Hemoglobin 31.4 pg (26-34); Mean Corpuscular Volume 95.7 fl (80-100); Mean Platelet Volume 8.8 fl (7.4-10.4); Monocytes Absolute Auto 0.7 K/mm3 (0.1-0.6); Monocytes Percent Auto 11.8 % (2.6-8.5); Neutrophils Absolute Auto 3.2 K/mm3 (1.3-6.7); Neutrophils Percent Auto 52.9 % (45.5-73.1); Platelet Count Result 292 k/mm3 (150-375); Red Cell Distribution Width 13.2 % (11.5-14.5)
[2021-01-28 16:39] LABS: Albumin Level 4.2 g/dL (3.5-5.1); Anion Gap 4 mmol/L (8-16); Blood Urea Nitrogen 14 mg/dL (9-20); Calcium 9.3 mg/dL (8.4-10.2); Carbon Dioxide 31 mmol/L (22-30); Chloride 101 mmol/L (98-107); Estimated Glomerular Filt Rate > 60; Glucose 98 mg/dL (65-110); Potassium 4.6 mmol/L (3.4-5.0); Sodium 136 mmol/L (137-145)
[2021-01-28 16:52] LABS: Urine Cotinine NEGATIVE
[2021-01-28 17:18] LABS: Hemoglobin A1C 5.3 % (<5.7)
== END 2021-01-28 14:09 | disposition home or self-care (01) ==
PROVIDERS: PCP Family Medicine; Visit Provider Orthopaedic Surgery
DX: Z01.812 Encounter for preprocedural laboratory examination (principal); M16.11 Unilateral primary osteoarthritis, right hip; Z51.81 Encounter for therapeutic drug level monitoring; Z79.899 Other long term (current) drug therapy
CPT/HCPCS: 80048; 80307; 82040; 83036; 85025; 87070

== ENCOUNTER 2021-02-10 00:24 | Day surgery (SDC) | payer MEDICARE, SELFPAY ==
[2021-01-28 14:32] VITALS: BP 121/71; PULSE 71; RESP 18; TEMP 37; O2SAT 96; BMI 29.5
--- NOTE | 2021-02-07 12:06 | PM.IMHP ---
H&P: HPI History of Present Illness Date/Time: 02/07/21 12:06 65-year-old male patient of Dr. Quezada who presents today for a right total hip arthroplasty. Patient has been having pain and symptoms in this right hip for approximately year. He has been on anti-inflammatories, diclofenac, which gives him some relief. Pain is getting a little bit worse. She is having pain on a more regular basis. It is keeping him from activities. He does have jwjn-up-[id number] arthritis in the right hip. He feels this point is ready proceed with total hip arthroplasty rather continue nonsurgical treatment. Chief Complaint: right hip DJD Review of Systems Review of Systems: All systems reviewed & are unremarkable except as noted in HPI and below PMFSH Past Medical History Medical History Acute bronchitis, viral Arthritis Back pain with right-sided sciatica BMI 30.0-30.9,adult BPH associated with nocturia Erectile dysfunction Hypertension Right hip pain Vitamin B12 deficiency anemia Surgical History Surgical History H/O prostate biopsy 2016 History of hernia surgery 1999,2015 History of neck surgery Disk surgery 1989 Urolith 2016 Family History Family History Mother Patient's mother is , Onset Age: 84 Family history of malignant neoplasm of urinary bladder Hypertension Father Family history of malignant neoplasm, Onset Age: 74 Leukemia Other Carcinoma of colon Other Family history of lung cancer Social History Social History Social History: The patient is recently from this last year. The patient has 1 son. 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 The patient desires to be a full code. The patient is retired from [employer]. the patient used to chew tobacco. He does not use any alcohol marijuana or illicit drugs. The patient desires Smoking status: Former smoker Tobacco type: cigarettes Smokeless tobacco user: chewing tobacco Second hand tobacco smoke exposure: No Smoking end date: 09/17/10 Additional smoking assessment comments: 1 PACK/WEEK X 30 YEARS Alcohol intake: current Drinks per week: 12 Alcohol use details: beer Substance use: never Substance use type: does not use Additional living arrangements comments: Gender identity (if verbalized by the patient): Male Spiritual care concerns: No Agree to blood products: Yes Meds Home Medications and Allergies Home Medications Medication Instructions Recorded Confirmed Type finasteride 5 mg tablet 5 mg PO DAILY 03/08/19 01/28/21 History tadalafil 5 mg tablet 5 mg PO DAILY 03/08/19 01/28/21 History sildenafil (pulm.hypertension) 20 20 mg PO .COMPLEX PRN #90 tablet 02/08/20 01/28/21 Rx mg tablet cholecalciferol (vitamin D3) 25 25 mcg PO DAILY 04/30/20 01/28/21 History mcg (1,000 unit) capsule irbesartan 150 mg PO QAM 01/28/21 01/28/21 History naproxen sodium [Aleve] 440 mg PO BID PRN 01/28/21 01/28/21 History Allergies Allergy/AdvReac Type Severity Reaction Status Date / Time Sulfa (Sulfonamide Allergy Severe Rash Verified 01/28/21 14:26 Antibiotics) Exam Narrative: 65-year-old male he is 6 ft 2 and 244 lb. Walks with a mild limp. His right hip flexes from 0-115 degrees. Internal rotation is 0 which causes a mild lateral hip pain and external rotation of 30. Stinchfield maneuver causes a mild lateral hip pain. He has 2+ dorsalis pedis and posterior tibial artery pulse. Normal sensation right lower extremity. No edema. Skin around the pin groin crease are all normal. He has no tenderness over the greater trochanter. Resp: Auscultation: clear to auscultation bilaterally Cardio: Rate: regular rate Rhyth
[2021-02-10] VITALS (14 sets, daily range): BP systolic 95–138; BP diastolic 57–77; PULSE 65–81; RESP 15–18; TEMP 36.4–37.2; O2SAT 93–99
--- NOTE | ~2021-02-10 | XR_ITS ---
EXAMINATION: XR hip RT 1V w AP pelvis EXAM DATE: 02/10/2021 11:14 INDICATION: Rt Total Hip - Anterior Approach Post Op. TECHNIQUE: Portable frontal projection pelvis and hips, portable crosstable lateral projection right hip. FINDINGS: Right hip arthroplasty hardware in expected position. There is a laterally placed surgical drain. There is some scattered subcutaneous gas in the region. Mild to moderate left hip primary oste oarthritis. Metallic densities overlying expected location of prostate. Pelvic phleboliths. The iliac crests were excluded from the pelvic x-ray. IMPRESSION: 1. Right hip arthroplasty hardware in expected position. Reviewed, dictated and finalized at location B.
--- NOTE | ~2021-02-10 | XR_ITS ---
EXAMINATION: XR surgery orthopedic DATE: 02/10/2021 11:11 INDICATION: Total right hip arthroplasty. TECHNIQUE: 2 intraoperative fluoroscopic views of right hip were obtained. I was not present. Fluoros copy exposure time was 50 seconds. COMPARISON: Pelvis and right hip radiographs 02/10/2021 FINDINGS: There is a total right hip arthroplasty in near-anatomic alignment. Surgical clips overlie the pelvis. IMPRESSION: 1. Total right hip arthroplasty in near-anatomic alignment. Reviewed, dictated and finalized at location A.
[2021-02-10] MEDS: ACETAMINOPHEN 500 MG TABLET 1000 MG PO ×3 (06:16→18:06)
[2021-02-10] MEDS: TRANEXAMIC ACID 1,000MG/ISO100 1,000 MG/100 ML BAG 200 MG IVPB (06:18)
[2021-02-10] MEDS: LACTATED RINGERS 1,000 ML 30 ML IV CONT ×3 (06:33→11:09)
--- NOTE | 2021-02-10 06:51 | WPDANESEPPF ---
Anes - Initial Pre Proc Eval Procedure: Operation Date: 02/10/21 07:30 Proposed Procedures p Right Total Hip Arthroplasty, Direct Anterior Approach - Jimi Drew MD Date/Time: 02/10/21 06:51 Surgeon: Jimi Drew MD Pre Op Diagnosis: OA right hip Patient Data Age: 65 Gender: M Height: 1.93 m Weight: 109.9 kg Last Vital Signs Temp 37.0 C 01/28/21 14:32 Pulse 71 01/28/21 14:32 Resp 18 01/28/21 14:32 BP 121/71 01/28/21 14:32 Pulse Ox 96 01/28/21 14:32 Allergies Allergy/AdvReac Type Severity Reaction Status Date / Time Sulfa (Sulfonamide Allergy Severe Rash Verified 01/28/21 14:26 Antibiotics) Home Medications Medication Instructions Recorded Confirmed Type finasteride 5 mg tablet 5 mg PO DAILY 03/08/19 01/28/21 History tadalafil 5 mg tablet 5 mg PO DAILY 03/08/19 01/28/21 History sildenafil (pulm.hypertension) 20 20 mg PO .COMPLEX PRN #90 tablet 02/08/20 01/28/21 Rx mg tablet cholecalciferol (vitamin D3) 25 25 mcg PO DAILY 04/30/20 01/28/21 History mcg (1,000 unit) capsule irbesartan 150 mg PO QAM 01/28/21 01/28/21 History naproxen sodium [Aleve] 440 mg PO BID PRN 01/28/21 01/28/21 History Patient hx anesthesia problems: none Family hx anesthesia problems: none Results Review: All pre-operative results and documents have been reviewed as part of the pre-operative evaluation. [facility] Past Medical History Medical History Acute bronchitis, viral Arthritis Back pain with right-sided sciatica BMI 30.0-30.9,adult BPH associated with nocturia Erectile dysfunction Hypertension Right hip pain Vitamin B12 deficiency anemia Surgical History Surgical History H/O prostate biopsy 2016 History of hernia surgery 1999,2015 History of neck surgery Disk surgery 1989 Urolith 2016 Family History Family History Mother Patient's mother is , Onset Age: 84 Family history of malignant neoplasm of urinary bladder Hypertension Father Family history of malignant neoplasm, Onset Age: 74 Leukemia Other Carcinoma of colon Other Family history of lung cancer Social History Social History Social History: The patient is recently from this last year. The patient has 1 son. 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 The patient desires to be a full code. The patient is retired from [employer]. the patient used to chew tobacco. He does not use any alcohol marijuana or illicit drugs. The patient desires Smoking status: Former smoker Tobacco type: cigarettes Smokeless tobacco user: chewing tobacco Second hand tobacco smoke exposure: No Smoking end date: 09/17/10 Additional smoking assessment comments: 1 PACK/WEEK X 30 YEARS Alcohol intake: current Drinks per week: 12 Alcohol use details: beer Substance use: never Substance use type: does not use Living arrangements: with family Additional living arrangements comments: Gender identity (if verbalized by the patient): Male Spiritual care concerns: No Agree to blood products: Yes Anes - Eval Final PreProcedure Day of Procedure 02/10/21 06:51 Patient weight: overweight Heart: regular rate and rhythm Lungs: clear to auscultation Airway: Mallampati scale class II Neurological: alert and oriented Last oral intake: >/= 8 hours ASA classification: II Emergent: no Anesthetic plan: proceed Anesthesia type and monitoring: general ETT and standard monitoring Results Review: All pre-operative results and documents have been reviewed as part of the pre-operative evaluation. Informed Consent: The patient's anesthetic plan and its attendant risks and benefits were discussed wit
--- NOTE | 2021-02-10 07:14 | WPDHPUPDATE1 ---
History and Physical Update Update Date/Time: 02/10/21 07:14 History and Physical has been reviewed, including an updated exam of the patient. There are NO changes in the patient's condition. Risks, benefits, and alternatives have been discussed and questions answered. Patient agrees to proceed with procedure.
[2021-02-10] MEDS: ceFAZolin 2 GM/D5W 50 ML 2 GM/50 ML BAG IVPB (07:34)
[2021-02-10] MEDS: ceFAZolin SODIUM 1 GM VIAL 3 GM IRRIGATION (08:25)
[2021-02-10] MEDS: TRANEXAMIC ACID 1,000 MG/10 ML AMPUL 1000 MG IV PUSH (10:38)
[2021-02-10] MEDS: ceFAZolin SODIUM 1 GM VIAL 2 GM IV PUSH (10:40)
--- NOTE | 2021-02-10 10:56 | W.PM.PROC2 ---
Procedure Note - Detailed Date of Procedure 02/10/21 Pre-op Diagnosis OA right hip Post-op Diagnosis same Procedure Performed Direct anterior approach right total hip arthroplasty Surgeon Jimi Drew MD [facility] Anesthesia general Findings Same Description of Procedure Patient was brought to the operating room and general anesthesia was administered. Feet were padded with soft roll and placed in the special traction boots. [facility] the right hip prepped and draped usual fashion. He received 1 g of Ancef weight based vancomycin 2 g of Ancef preoperatively. A 10 cm longitudinal incision was made starting 3 cm lateral to the ASIS. Dissection was carried down to the fascia which was exposed and longitudinally incised elevated off the anterior 1/2 the TFL muscle. Interval between TFL and rectus femoris developed and the crossing branches of ascending lateral femoral circumflex vessels were ligated with suture divided. Ileal capsule layers was elevated off anterior capsule and retractor placed. The hip was abducted internally rotated and the gluteus minimus elevated off of the lateral capsule. Capsulotomy was performed. Femoral neck osteotomy was made according to preoperative templating. Femoral head was removed without difficulty measured 58 mm in diameter. It had a large peripheral rimming osteophyte. Acetabulum was exposed labrum excised. The acetabulum was fairly shallow. The femur was externally rotated and extended and the interval between conjoined tendon and piriformis tendon incised allowing the piriformis to 50 posteriorly and the conjoined tendon to partially recessed. This gave adequate mobilization the femur. With the femur back in the horizontal position external rotation acetabulum was exposed and we medialized with a 44 Reamer to the floor of the fovea. We reamed up to a 57 mm Reamer which reamed just periphery and this was done under fluoroscopic guidance. The 57 trial was tight. We reamed with the 58 mm Reamer conservatively and then reinserted the 57 mm Reamer and countersunk to the floor of the fovea additional 2 or 3 mm. The 58 mm pinnacle shell was chosen and was impacted at 40? of abduction and anteversion set that the anterior shell was flush with the anterior wall which left the posterior shell about fiber 6 mm proud of the posterior wall. Full seating was achieved with an excellent Press-Fit. Single screw was placed in the ilium and a 36 mm inner diameter 0 degree liner impacted without difficulty. Extra the femur was externally rotated extended and we broached the femur. We used the concise mechanical impactor and it started getting tight at 6 and with a 6 Actis broach flush with the neck, we could still get a 0.5 mm of rotational wiggle although it did take some force. We went up to the size 7. This was seated flush with the neck cut and we trialed. He had a type a femur and the distal portion of the stem was tight in the canal. We trialed with the 1.5 on the standard neck and the hip was a little bit tight even with paralysis. It was completely stable. We brought in x-ray and on AP pelvis with fluoro that looked like we were a couple of mm longer than our preoperative plan. We then impacted the broach down another 2.5 mm which occurred slowly and gradually with the concise impactor as his bone was very strong but it did progress. We then calcar planed at this level trialed and with the 1.5 we had appropriate stability appropriate soft tissue tension and on the fluoro AP pelvis looked like our leg lengths were exactly equal Niki to lesser tuberosities. The medial periphery of the femoral neck was further planed with the precision saw and the broach was removed with a little bit of difficulty as it was very tight. We did this after thoroughly testing for torsional stability which was rock-solid. We chose the size 7 standard neck Actis stem. This was impacted and we we
--- NOTE | 2021-02-10 13:11 | ADMGEN ---
This patient, Lowell Padron, was admitted to 2 Medical Room 259-01. Patient/family oriented to hospital policies and general routines including ID bracelet, bed and alarms, visiting hours, pain management, procedures, bathroom and other care routines, personal items, smoking policy, room service/diet, and visiting hours. Information on how to activate the Rapid Response Team has been discussed. Patient/Family are encouraged to report perceived risks to care and to ask questions if they do not understand what they are told or what they should do.
[2021-02-10] MEDS: oxyCODONE HCL (*CRX) 5 MG TAB IR PO ×3 (14:06→20:18)
[2021-02-10] MEDS: ONDANSETRON INJ 4 MG/2 ML VIAL IV PUSH (17:27)
[2021-02-10] MEDS: SENNA/DOCUSATE SODIUM TABLET 2 TAB PO (18:05)
[2021-02-10] MEDS: FAMOTIDINE 20 MG TABLET PO (20:18)
[2021-02-11] VITALS: PULSE 74; RESP 16; O2SAT 96
[2021-02-11] MEDS: oxyCODONE HCL (*CRX) 5 MG TAB IR PO ×4 (00:15→12:04)
[2021-02-11] MEDS: ACETAMINOPHEN 500 MG TABLET 1000 MG PO ×2 (00:15→05:07)
[2021-02-11 00:58] VITALS: BP 108/57; PULSE 74; RESP 18; TEMP 36.9; O2SAT 96
[2021-02-11 05:11] LABS: Basophils Percent Auto 0.2 % (0.2-1.2); Eosinophils Percent Auto 0.1 % (0-4.4); Hematocrit 32.8 % (42.0-52.0); Hemoglobin 10.9 g/dL (14.0-18.0); Immature Granulocyte Absolute 0.02 K/mm3 (0.00-0.031); Immature Granulocyte Percent A 0.2 % (0-0.5); Lymphocytes Absolute Auto 1.76 K/mm3 (0.9-3.2); Lymphocytes Percent Auto 21.5 % (18.3-44.2); Mean Corpuscular HGB Conc 33.2 g/dl (32-36); Mean Corpuscular Hemoglobin 31.7 pg (26-34); Mean Corpuscular Volume 95.3 fl (80-100); Mean Platelet Volume 9.1 fl (7.4-10.4); Monocytes Absolute Auto 0.9 K/mm3 (0.1-0.6); Monocytes Percent Auto 10.4 % (2.6-8.5); Neutrophils Absolute Auto 5.5 K/mm3 (1.3-6.7); Neutrophils Percent Auto 67.6 % (45.5-73.1); Platelet Count Result 230 k/mm3 (150-375); Red Blood Count 3.44 M/mm3 (4.6-6.20); Red Cell Distribution Width 13.1 % (11.5-14.5); White Blood Count 8.2 K/mm3 (4.5-10.0)
[2021-02-11] MEDS: FINASTERIDE 5 MG TABLET PO (05:11)
[2021-02-11 05:28] LABS: Anion Gap 6 mmol/L (8-16); Blood Urea Nitrogen 19 mg/dL (9-20); Calcium 8.3 mg/dL (8.4-10.2); Carbon Dioxide 25 mmol/L (22-30); Chloride 101 mmol/L (98-107); Estimated CRCL calculation 66 ml/min; Estimated Glomerular Filt Rate > 60; Glucose 105 mg/dL (65-110); Potassium 4.3 mmol/L (3.4-5.0); Sodium 132 mmol/L (137-145)
--- NOTE | 2021-02-11 06:17 | PM.PNORT ---
Progress Note: A&P Additional Plan Postop day 1 patient is alert, afebrile vital signs are stable. His morning labs are all stable. Patient is now walking with therapy yesterday and comfortable. His pain is very well controlled. His drain is out. Neurovascularly is intact. Incision is dry has swelling incision. Patient will work with Physical therapy this morning and if he is comfortable and doing well will discharge him home. If he feels that he needs to have an additional therapy visit will stay till this afternoon it to a 2nd session. Overall patient is doing very well and is eager to got home. Subjective Subjective Date/Time Seen: 02/11/21 06:17 Objective Data Vital Signs Vital Signs: Vital Signs - 24 hr 02/10/21 07:00 02/10/21 11:09 02/10/21 11:20 Temperature 36.7 C 37.1 C Pulse Rate 81 66 68 Respiratory Rate 16 15 16 Blood Pressure 112/69 95/58 L 115/60 Pulse Oximetry 98 98 99 02/10/21 11:30 02/10/21 11:44 02/10/21 12:00 Temperature Pulse Rate 72 69 69 Respiratory Rate 18 18 16 Blood Pressure 115/75 106/57 L 108/61 Pulse Oximetry 95 93 95 02/10/21 12:15 02/10/21 12:30 02/10/21 12:45 Temperature 37.1 C Pulse Rate 69 69 69 Respiratory Rate 16 16 16 Blood Pressure 112/65 121/69 115/77 Pulse Oximetry 99 94 96 02/10/21 13:10 02/10/21 13:25 02/10/21 13:55 Temperature 36.4 C 36.6 C 36.6 C Pulse Rate 71 71 75 Respiratory Rate 16 18 16 Blood Pressure 108/65 112/67 107/66 Pulse Oximetry 98 97 95 02/10/21 18:47 02/10/21 22:23 02/11/21 00:00 Temperature 36.8 C 37.2 C Pulse Rate 65 74 74 Respiratory Rate 18 16 16 Blood Pressure 106/58 L 138/62 Pulse Oximetry 98 96 96 02/11/21 00:58 Temperature 36.9 C Pulse Rate 74 Respiratory Rate 18 Blood Pressure 108/57 L Pulse Oximetry 96 Intake/Output Intake/Output: Intake & Output 02/08/21 02/09/21 02/10/21 02/11/21 23:59 23:59 23:59 23:59 Intake Total 1650 Balance 1650 Meds/Results Medications: Active Medications Generic Name Dose Route Start Last Admin Trade Name Patrickq PRN Reason Stop Dose Admin Acetaminophen 1,000 mg 02/10/21 13:02 02/11/21 05:07 Acetaminophen 500 Mg Tablet PO 1,000 mg Q6HR LUPE Administration Al Hydrox/Mg Hydrox/Simethicone 30 ml 02/10/21 13:02 Mag Hydrox/Al Hydrox/Simeth 30 Ml Udc PO Q6H PRN Indigestion Apixaban 2.5 mg 02/11/21 09:00 Apixaban 2.5 Mg Tablet PO 03/17/21 21:01 Q12HR LUPE Famotidine 20 mg 02/10/21 21:00 02/10/21 20:18 Famotidine 20 Mg Tablet PO 20 mg Q12HR LUPE Administration Finasteride 5 mg 02/11/21 09:00 02/11/21 05:11 Finasteride 5 Mg Tablet PO 5 mg DAILY LUPE Administration Hydroxyzine HCl 50 mg 02/10/21 13:02 Hydroxyzine Hcl 25 Mg Tablet PO Q4H PRN Itching Vancomycin HCl 1,000 mg in 250 mls @ 250 mls/hr 02/10/21 19:00 02/11/21 05:50 Vancomycin 1,000 Mg/D5w 250 Ml IVPB 02/11/21 07:59 250 mls/hr Q12H LUPE Administration Cefazolin Sodium 1 gm in 50 mls @ 100 mls/hr 02/10/21 14:00 02/11/21 05:07 Ancef 1 Gm/D5w 50 Ml Pm IVPB 02/11/21 06:29 100 mls/hr Q8H LUPE Administration Irbesartan 150 mg 02/11/21 09:00 Irbesartan 150 Mg Tablet PO QAM LUPE Magnesium Hydroxide 30 ml 02/10/21 13:02 Magnesium Hydroxide Susp 30 Ml Udc PO BID PRN Constipation Meloxicam 7.5 mg 02/11/21 08:00 Meloxicam 7.5 Mg Tablet PO DAILY@0800 LUPE Morphine Sulfate 2 mg 02/10/21 13:02 Morphine Sulfate (*Crx) 2 Mg/Ml Inj IV PUSH Q4H PRN Pain Rated 7-10 Naloxone HCl 0.1 mg 02/10/21 13:02 Naloxone Hcl 0.4 Mg/Ml Vial IV PUSH Q2M PRN Opiate Reversal Ondansetron HCl 4 mg 02/10/21 13:02 02/10/21 17:27 Ondansetron Inj 4 Mg/2 Ml Vial IV PUSH 4 mg Q4H PRN Administration Nausea And Vomiting Oxycodone HCl 5 mg 02/10/21 13:00 02/11/21 05:07 Oxycodone Hcl (*Crx) 5 Mg Tab Ir PO 5 mg Q4HR LUPE Administration Oxycodone HCl 5 mg
--- NOTE | 2021-02-11 06:22 | PM.DS ---
DS: Admitting Diagnosis Discharge Date 02/11 Admitting Diagnosis right hip DJD DS: Summary Hospital Course Hospital Course: stable Time Spent with Patient Time attestation: Total time spent providing and/or coordinating discharge services: 65-year-old male who underwent right anterior total hip arthroplasty on 02/10. Underwent procedure without any complications. Postoperatively he has been afebrile and vital signs was stable. His drain is out. He is weight-bearing as tolerated. He was up walking with physical therapy the day of surgery and very comfortable. His pain is well controlled with scheduled Tylenol as well as oxycodone 5 mg. He is also on meloxicam 7.5 mg daily. He will be discharged home on 02/11. He is on 5 weeks of Eliquis for DVT prophylaxis. He is also going home and Senokot and MiraLax. Postop day 1 his hemoglobin was 10.9 and his platelets were 230. Patient was advised to keep leg elevated at home. He may transition in the cane is as comfort allows. Patient was advised any questions or concerns once he goes home he will call the office otherwise will see him at his appointed date. DS: Data Data Completed and Pending Labs on day of discharge: Labs from last 24 hours 02/11/21 02/11/21 02/10/21 04:25 04:25 06:15 WBC 8.2 RBC 3.44 L Hgb 10.9 L Hct 32.8 L MCV 95.3 MCH 31.7 MCHC 33.2 RDW 13.1 Plt Count 230 MPV 9.1 Immature Gran % (Auto) 0.2 Neut % (Auto) 67.6 Lymph % (Auto) 21.5 [place] % (Auto) 10.4 H Eos % (Auto) 0.1 Baso % (Auto) 0.2 Lymph # (Auto) 1.76 [place] # (Auto) 0.9 H Eos # (Auto) 0.0 Baso # (Auto) 0.0 Abs Immat Gran (auto) 0.02 Absolute Neuts (auto) 5.5 Absolute Nucleated RBC 0.0 Nucleated RBC % 0.0 Sodium 132 L Potassium 4.3 Chloride 101 Carbon Dioxide 25 Anion Gap 6 L BUN 19 Creatinine 1.20 Estim Creat Clear Calc 66 Estimated GFR > 60 Glucose 105 Calcium 8.3 L Blood Type A Positive Antibody Screen Negative Discharge Plan Discharge Patient Disposition: Home, Self-Care Discharge Instructions: JIMI DREW M.D [facility], [facility] [address] [place] [id number] POST-OPERATIVE DISCHARGE INSTRUCTIONS ANTERIOR TOTAL HIP ARTHROPLASTY 1. Move toes/feet up and down every hour while awake. 2. Be up walking every hour while awake. 3. Use cane in hand opposite of side of hip surgery or walker as comfort allows. Avoid sitting in a chair unless eating, receiving visitors or using the toilet. 4. When resting, lie on back with leg elevated above heart to minimize swelling. Significant swelling could indicate a blood clot and if this occurs, call the office (or go to the ER) to have a venous ultrasound performed. 5. Wound Care: Keep dry sponge on wound for 2 weeks. Use minimal tape. 6. Follow weight bearing status as instructed. 7. May shower with dressing off. Patient Instructions: Apixaban (By mouth), Pain Management (DC), Precautions after Total Joint Replacement Surgery (DC), Joint Replacement Surgery (DC), How to Quit Using Smokeless Tobacco (GEN), Total Hip Replacement (DC) Follow-up/Referrals: Jimi Drew MD [Physician] - Keep Reg. Scheduled Appt. Discharge Medications: New acetaminophen 500 mg Tablet 1,000 mg PO Q6HR Qty: 90 RF: 0 Eliquis 2.5 mg Tablet 2.5 mg PO Q12HR Qty: 69 RF: 0 sennosides-docusate sodium [Senokot-S] 8.6-50 mg Tablet 2 tab-cap PO BID Qty: 60 RF: 0 polyethylene glycol 3350 [Miralax] 17 gram Powder In Packet 17 g PO QAM Qty: 30 RF: 0 meloxicam [Mobic] 7.5 mg Tablet 7.5 mg PO DAILY@0800 Qty: 14 RF: 0 oxycodone 5 mg Tablet 5 mg PO Q4HR Qty: 40 RF: 0 Continued cholecalciferol (vitamin D3) 25 mcg (1,000 unit) capsule 25 mcg PO DAILY RF: 0 irbesartan 150 mg tablet 150 mg PO QAM RF: 0 tadalafil [Cialis] 5 mg table
[2021-02-11 06:30] VITALS: BP 101/56; PULSE 70; RESP 16; TEMP 36.3; O2SAT 97
--- NOTE | 2021-02-11 07:33 | P.PNAN_ITS ---
Anes - Prog Note Post-Op Date/Time: 02/11/21 07:33 Cardiovascular status: normal Respiratory status: normal Airway patency: baseline Mental status: baseline Post-Op hydration status: normal Vital Signs: Last Vital Signs Temp 36.3 C L 02/11/21 06:30 Pulse 70 02/11/21 06:30 Resp 16 02/11/21 06:30 BP 101/56 L 02/11/21 06:30 Pulse Ox 97 02/11/21 06:30 Pain Score (VAS): 3 I/O: Intake & Output 02/10/21 02/10/21 02/11/21 15:59 23:59 07:59 Intake Total 2987 426 4448 Output Total 1000 Balance 1010 540 50 Laboratory Tests 02/11/21 04:25 02/11/21 04:25 02/10/21 02/11/21 02/11/21 06:15 04:25 04:25 WBC 8.2 RBC 3.44 L Hgb 10.9 L Hct 32.8 L MCV 95.3 MCH 31.7 MCHC 33.2 RDW 13.1 Plt Count 230 MPV 9.1 Immature Gran % (Auto) 0.2 Neut % (Auto) 67.6 Lymph % (Auto) 21.5 [place] % (Auto) 10.4 H Eos % (Auto) 0.1 Baso % (Auto) 0.2 Lymph # (Auto) 1.76 [place] # (Auto) 0.9 H Eos # (Auto) 0.0 Baso # (Auto) 0.0 Abs Immat Gran (auto) 0.02 Absolute Neuts (auto) 5.5 Absolute Nucleated RBC 0.0 Nucleated RBC % 0.0 Sodium 132 L Potassium 4.3 Chloride 101 Carbon Dioxide 25 Anion Gap 6 L BUN 19 Creatinine 1.20 Estim Creat Clear Calc 66 Estimated GFR > 60 Glucose 105 Calcium 8.3 L Blood Type A Positive Antibody Screen Negative Post-procedural complaints: none Patient Feedback: Patient satisfied with anesthetic care.
[2021-02-11] MEDS: APIXABAN 2.5 MG TABLET PO (08:10)
[2021-02-11] MEDS: FAMOTIDINE 20 MG TABLET PO (08:11)
[2021-02-11] MEDS: SENNA/DOCUSATE SODIUM TABLET 2 TAB PO (08:11)
[2021-02-11] MEDS: CHOLECALCIFEROL 1,000 UNITS TABLET 1000 UNITS PO (08:11)
[2021-02-11] MEDS: polyethylene glycoL 3350 17 GM POWD.PACK PO (08:11)
[2021-02-11] MEDS: MELOXICAM 7.5 MG TABLET PO (09:05)
[2021-02-11 12:02] VITALS: BP 120/60
== END 2021-02-11 12:22 | disposition home or self-care (01) ==
LOC: ANHSURGERY 05:51 → ANH2MED 13:03
PROVIDERS: Physician Assistant Surgical; PCP Family Medicine; Visit Provider Orthopaedic Surgery
PROC: (CPT 27130; principal; 2021-02-10 07:30)
DX: M16.11 Unilateral primary osteoarthritis, right hip (principal); I10 Essential (primary) hypertension; N40.1 Benign prostatic hyperplasia with lower urinary tract symptoms; R35.1 Nocturia; D51.3 Other dietary vitamin B12 deficiency anemia; Z87.891 Personal history of nicotine dependence
CPT/HCPCS: 27130; 36415; 73501; 80048; 85025; 86850; 86900; 86901; 97110; 97116; 97162; 97165; 97530; 97535; A9270; C1776; J0171; J0690; J1100; J1885; J2250; J2270; J2370; J2405; J2704; J2710; J2795; J3370; J7120

== ENCOUNTER 2021-02-19 16:38 | Outpatient (CLI) | payer MEDICARE, SELFPAY ==
--- NOTE | ~2021-02-19 | US_ITS ---
EXAMINATION: US venous doppler LE RT DATE: 02/19/2021 17:21 INDICATION: Right lower limb swelling TECHNIQUE: Lares scale images without and with compression and Doppler images of the right lower extre mity veins were obtained. COMPARISON: None FINDINGS: The right common femoral vein, profunda femoral vein, femoral vein, popliteal vein, peronea l trunk, posterior tibial veins, and greater saphenous vein are patent. IMPRESSION: 1. Patent right lower extremity veins. No evidence of deep venous thrombosis. Reviewed, dictated and finalized at location B.
== END 2021-02-19 16:39 | disposition home or self-care (01) ==
PROVIDERS: PCP Family Medicine; Visit Provider Orthopaedic Surgery
DX: R60.0 Localized edema (principal)
CPT/HCPCS: 93971

== ENCOUNTER 2022-07-13 00:13 | Day surgery (SDC) | payer MEDICARE, SELFPAY ==
[2022-06-29 15:43] VITALS: BMI 29.9
--- NOTE | 2022-07-10 14:44 | PM.HPGS ---
History of Present Illness History of Present Illness Consent: Risks, benefits, and alternatives have been discussed and questions answered. Patient agrees to proceed with procedure. Chief complaint: neoplasm screening Narrative: Lowell Padron is a 66 year old male referred for colon cancer screening. His last colonoscopy was 6 years ago. He has a family history of colon cancer on his mother side. Review of Systems Review of Systems: All systems reviewed & are unremarkable except as noted in HPI and below PMFSH Past Medical History Medical History Arthritis Back pain with right-sided sciatica BPH associated with nocturia Erectile dysfunction Screening for cholesterol level Screening for colon cancer Vitamin B12 deficiency anemia Surgical History Surgical History H/O prostate biopsy 2016 History of hernia surgery 1999,2015 History of neck surgery Disk surgery 1989 History of total hip replacement Urolith 2016 Family History Family History Mother Patient's mother is , Onset Age: 84 Family history of malignant neoplasm of urinary bladder Hypertension Father Family history of malignant neoplasm, Onset Age: 74 Leukemia Other Carcinoma of colon Other Family history of lung cancer Social History Social History Social History: The patient is recently from this last year. The patient has 1 son. 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 The patient desires to be a full code. The patient is retired from [employer]. the patient used to chew tobacco. He does not use any alcohol marijuana or illicit drugs. The patient desires Smoking status: Former smoker Tobacco type: cigarettes Smokeless tobacco user: chewing tobacco Second hand tobacco smoke exposure: No Additional smoking assessment comments: 1 PACK/WEEK X 30 YEARS Alcohol intake: current Drinks per week: 6 Alcohol use details: beer Substance use: never Substance use type: does not use Living arrangements: with family Additional living arrangements comments: Occupation/Education: retired Gender identity (if verbalized by the patient): Male Spiritual care concerns: No Agree to blood products: Yes Meds Home Medications and Allergies Home Medications Medication Instructions Recorded Confirmed Type tadalafil 5 mg tablet (Cialis) 5 mg PO DAILY 03/08/19 07/13/22 History acetaminophen 500 mg tablet 1,000 mg PO Q6HR #90 tabs 02/11/21 07/13/22 Rx cholecalciferol (vitamin D3) 50 50 mcg PO DAILY 05/05/21 07/13/22 History mcg (2,000 unit) capsule irbesartan 150 mg tablet See Rx Instructions .Route 02/24/22 07/13/22 Rx .COMPLEX #90 tabs rosuvastatin 5 mg tablet (Crestor) 5 mg PO DAILY #90 tabs 06/10/22 07/13/22 Rx Allergies Allergy/AdvReac Type Severity Reaction Status Date / Time Sulfa (Sulfonamide Allergy Severe Rash Verified 07/13/22 09:33 Antibiotics) Exam Const: General: alert Orientation/consciousness: patient oriented x3 Resp: Auscultation: clear to auscultation bilaterally Cardio: Rhythm: regular rhythm GI: GI Palp: Yes Soft to palpation and No Tenderness to palpation present (GI) Neuro: General: patient oriented x3 Assessment and Plan Assessment and plan (1) Screening for colon cancer: Code(s): Z12.11 - Encounter for screening for malignant neoplasm of colon Status: Acute Assessment and Plan: Colonoscopy with possible biopsy or polypectomy or cautery or injection of substances.
[2022-07-13 09:34] VITALS: BP 122/72; PULSE 74; RESP 18; TEMP 36; O2SAT 98
[2022-07-13] MEDS: LACTATED RINGERS 1,000 ML 150 ML IV CONT (09:43)
--- NOTE | 2022-07-13 10:22 | WPDANESEPPF ---
Anes - Initial Pre Proc Eval Procedure: Operation Date: 07/13/22 11:00 Proposed Procedures p Screening Colonoscopy - Kingston Fernandez MD Date/Time: 07/13/22 10:22 Surgeon: Kingston Fernandez MD Pre Op Diagnosis: neoplasm screening Patient Data Age: 66 Gender: M Height: 1.93 m Weight: 108.1 kg Last Vital Signs Temp 36.0 C L 07/13/22 09:34 Pulse 74 07/13/22 09:34 Resp 18 07/13/22 09:34 BP 122/72 07/13/22 09:34 Pulse Ox 98 07/13/22 09:34 O2 Del Method Room Air 07/13/22 09:34 Allergies Allergy/AdvReac Type Severity Reaction Status Date / Time Sulfa (Sulfonamide Allergy Severe Rash Verified 07/13/22 09:33 Antibiotics) Home Medications Medication Instructions Recorded Confirmed Type tadalafil 5 mg tablet (Cialis) 5 mg PO DAILY 03/08/19 07/13/22 History acetaminophen 500 mg tablet 1,000 mg PO Q6HR #90 tabs 02/11/21 07/13/22 Rx cholecalciferol (vitamin D3) 50 50 mcg PO DAILY 05/05/21 07/13/22 History mcg (2,000 unit) capsule irbesartan 150 mg tablet See Rx Instructions .Route 02/24/22 07/13/22 Rx .COMPLEX #90 tabs rosuvastatin 5 mg tablet (Crestor) 5 mg PO DAILY #90 tabs 06/10/22 07/13/22 Rx Patient hx anesthesia problems: none Family hx anesthesia problems: none Results Review: All pre-operative results and documents have been reviewed as part of the pre-operative evaluation. [facility] Past Medical History Medical History Arthritis Back pain with right-sided sciatica BPH associated with nocturia Erectile dysfunction Screening for cholesterol level Screening for colon cancer Vitamin B12 deficiency anemia Surgical History Surgical History H/O prostate biopsy 2016 History of hernia surgery 1999,2015 History of neck surgery Disk surgery 1989 History of total hip replacement Urolith 2016 Family History Family History Mother Patient's mother is , Onset Age: 84 Family history of malignant neoplasm of urinary bladder Hypertension Father Family history of malignant neoplasm, Onset Age: 74 Leukemia Other Carcinoma of colon Other Family history of lung cancer Social History Social History Social History: The patient is recently from this last year. The patient has 1 son. 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 The patient desires to be a full code. The patient is retired from [employer]. the patient used to chew tobacco. He does not use any alcohol marijuana or illicit drugs. The patient desires Smoking status: Former smoker Tobacco type: cigarettes Smokeless tobacco user: chewing tobacco Second hand tobacco smoke exposure: No Additional smoking assessment comments: 1 PACK/WEEK X 30 YEARS Alcohol intake: current Drinks per week: 6 Alcohol use details: beer Substance use: never Substance use type: does not use Living arrangements: with family Additional living arrangements comments: Occupation/Education: retired Gender identity (if verbalized by the patient): Male Spiritual care concerns: No Agree to blood products: Yes Anes - Eval Final PreProcedure Day of Procedure 07/13/22 10:22 Patient weight: overweight Heart: regular rate and rhythm Lungs: clear to auscultation Airway: Mallampati scale class II Neurological: alert and oriented Last oral intake: >/= 8 hours ASA classification: II Emergent: no Anesthetic plan: proceed Anesthesia type and monitoring: general GIVS and standard monitoring Results Review: All pre-operative results and documents have been reviewed as part of the pre-operative evaluation. Informed Consent: The patient's anesthetic plan and its attendant risks and benefits were discussed with sarabjit
[2022-07-13 10:57] VITALS: BP 104/63; PULSE 66; RESP 22; O2SAT 98
[2022-07-13 11:07] VITALS: BP 100/64; PULSE 68; RESP 15; O2SAT 98
[2022-07-13 11:17] VITALS: BP 110/68; PULSE 70; RESP 16; O2SAT 98
== END 2022-07-13 11:20 | disposition home or self-care (01) ==
PROVIDERS: PCP Family Medicine; Visit Provider Internal Medicine Gastroenterology
PROC: 0DJD8ZZ Inspection of Lower Intestinal Tract, Via Natural or Artificial Opening Endoscopic (ICD-10-PCS; CPT 45378; principal; 2022-07-13 11:00)
DX: Z12.11 Encounter for screening for malignant neoplasm of colon (principal); K64.8 Other hemorrhoids; Z80.0 Family history of malignant neoplasm of digestive organs; Z87.891 Personal history of nicotine dependence
CPT/HCPCS: G0105; J2704; J7120

== ENCOUNTER 2023-12-21 15:54 | Outpatient (CLI) | payer MEDICARE, SELFPAY ==
--- NOTE | ~2023-12-21 | CT_ITS ---
EXAMINATION: CT abdomen pelvis wo con DATE: 12/21/2023 17:02 INDICATION: Enlarged prostate. Lower urinary tract abnormality. TECHNIQUE: Computed tomography (CT) of the abdomen and pelvis was performed without intravenous contr ast. Automated exposure control and iterative reconstruction technique were employed. The dose-length product was 786.55 mGy-cm. COMPARISON: None. FINDINGS: The visualized portions of the lung bases demonstrate mild atelectasis. No pleural effusion . The heart size is normal. No pericardial effusion. There are coronary artery calcifications. The li raisa, gallbladder, spleen, pancreas, adrenal glands, and kidneys are normal. There is no urolithiasis. The prostate is severely enlarged. There are brachytherapy seeds in the prostate. There are no dilat ed loops of bowel. The appendix is normal. There are no pathologically enlarged lymph nodes. There is no free intraperitoneal fluid. There is a total right hip arthroplasty. There is moderate thoracic a nd lumbar spondylosis. 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 IMPRESSION: 1. Severely enlarged prostate with brachytherapy seeds. 2. No evidence of metastatic disease. Reviewed, dictated and finalized at location A.
== END 2023-12-21 15:55 | disposition home or self-care (01) ==
LOC: ANHIMG 15:57
PROVIDERS: PCP Nurse Practitioner Family; Visit Provider Urology
DX: N40.1 Benign prostatic hyperplasia with lower urinary tract symptoms (principal); Z92.3 Personal history of irradiation
CPT/HCPCS: 74176